=== PATIENT | female | born 1950 | race Caucasian/White ===

== ENCOUNTER 2017-05-24 18:23 | Emergency (ER) | payer MEDICARE, OTHER ==
--- NOTE | 2017-05-24 21:10 | RAD ---
THREE VIEWS OF THE RIGHT ELBOW: 05/24/17 INDICATION: History of fall off couch two days ago with persistent right elbow pain. FINDINGS: There is diffuse osteopenia. There is moderate joint capsular distention. Radiocapitellar alignment i s evident. No distinct fracture is evident. IMPRESSION: 1. Joint capsular distention. In light of the patient's history, findings are suspicious for a r adiographically occult fracture, possibly of the radial head. Recommend appropriate conservative ther apy and immobilization with followup radiographs in 5 to 7 days. 2. Diffuse osteopenia. POS: [facility]
== END 2017-05-24 19:07 | disposition home or self-care (01) ==
LOC: SCSER 18:23
DX: S50.311A Abrasion of right elbow, initial encounter (principal); I25.10 Atherosclerotic heart disease of native coronary artery without angina pectoris; I11.0 Hypertensive heart disease with heart failure; I50.9 Heart failure, unspecified; E11.9 Type 2 diabetes mellitus without complications; E78.5 Hyperlipidemia, unspecified; F41.9 Anxiety disorder, unspecified; F32.9 Major depressive disorder, single episode, unspecified; Z79.84 Long term (current) use of oral hypoglycemic drugs; Z79.899 Other long term (current) drug therapy; W08.XXXA Fall from other furniture, initial encounter
CPT/HCPCS: 29105

== ENCOUNTER 2017-06-06 10:41 | Emergency (ER) | payer MEDICARE ==
--- NOTE | 2017-06-06 11:59 | RAD ---
RIGHT ELBOW RADIOGRAPHS FOUR VIEWS: Date: 06-06-17 Clinical history: Right elbow pain. FINDINGS: Comparison is made with the study dated 05-24-17. There is diffuse regional osteopenia, which limits evaluation. There is no radiographically apparent fracture. Elbow joint capsular distention persists, compatible with effusion. Alignment appears anatomic. Joint spaces appear preserved. IMPRESSION: Persistent joint capsular distention without evidence for radiographically apparent fracture. If ther e is persistent clinical concern for fracture, consider CT. POS: [facility]
[2017-06-06] MEDS ORDERED: HYDROcodone/Acetaminophen 5/325 mg Tablet ONE (12:40)
== END 2017-06-06 12:41 | disposition home or self-care (01) ==
LOC: SCSER 10:41
DX: S50.01XA Contusion of right elbow, initial encounter (principal); I25.10 Atherosclerotic heart disease of native coronary artery without angina pectoris; E11.9 Type 2 diabetes mellitus without complications; E78.5 Hyperlipidemia, unspecified; I11.0 Hypertensive heart disease with heart failure; I50.9 Heart failure, unspecified; Z86.73 Personal history of transient ischemic attack (TIA), and cerebral infarction without residual deficits; F41.9 Anxiety disorder, unspecified; F32.9 Major depressive disorder, single episode, unspecified; W19.XXXA Unspecified fall, initial encounter
CPT/HCPCS: 36416